=== PATIENT | female | born 1935 ===

== ENCOUNTER 2022-06-30 05:35 | Day surgery (SDC) | payer OTHER | END 2022-06-30 10:45 | disposition home or self-care (01) | LOC: AMB-ENDOS 05:35 | PROVIDERS: ATTEND Colon & Rectal Surgery | DX: K57.30 Diverticulosis of large intestine without perforation or abscess without bleeding (principal); Z85.038 Personal history of other malignant neoplasm of large intestine; K64.8 Other hemorrhoids; K92.1 Melena; Z20.822 Contact with and (suspected) exposure to COVID-19 ==